=== PATIENT | female | born 1995 ===

== ENCOUNTER 2020-12-29 11:57 | Emergency (ER) | payer BC ==
[2020-12-29 12:03] VITALS: BP 117/57
[2020-12-29] MEDS ORDERED: VERAPAMIL 5 MG/2 ML INJ ONE (12:05)
--- NOTE | 2020-12-29 12:48 | Emergency Department Report ---
ED ENT HPI - General Chief complaint: Earache Stated complaint: BUG IN RGHT EAR Time Seen by Provider: 12/29/20 12:07 Source: patient Mode of arrival: Ambulatory Limitations: No Limitations - History of Present Illness Initial comments: This is a 25-year-old female brought by mother nontoxic, well nourished in appearance, no acute signs of distress presents to the ED with c/o of right ear foreign body that occurred this morning. Patient stated that she believes a bug is in her ear. Patient denies any ear drainage. Patient denies any trauma to the area. Patient denies any mastoid tenderness or tragus tenderness. Patient denies hearing decrease or hearing changes. Patient denies any fever, chills, nausea, vomiting, chest pain, short of breath, headache or stiff neck. Patient denies any drug allergies or significant past medical history. MD complaint: foreign body -: This morning Location: R ear Severity: mild Severity scale (0 -10): 3 Quality: aching Consistency: constant Improves with: none Worsens with: none Associated Symptoms: denies: fever, cough, gum swelling, toothache, pain with swallowing, sore throat, tinnitus, hearing loss, discharge from ear, rhinorrhea - Related Data Previous Rx's Medication Instructions Recorded Last Taken Type Polymyxin B Sulf/Trimethoprim 2 drops TID 7 Days #1 bottle 12/29/20 Unknown Rx [Polytrim Eye Drops] Allergies Allergy/AdvReac Type Severity Reaction Status Date / Time No Known Allergies Allergy Unverified 12/29/20 12:06 ED Dental HPI - General Chief complaint: Earache Stated complaint: BUG IN RGHT EAR Time Seen by Provider: 12/29/20 12:07 Source: patient Mode of arrival: Ambulatory Limitations: No Limitations - Related Data Previous Rx's Medication Instructions Recorded Last Taken Type Polymyxin B Sulf/Trimethoprim 2 drops TID 7 Days #1 bottle 12/29/20 Unknown Rx [Polytrim Eye Drops] Allergies Allergy/AdvReac Type Severity Reaction Status Date / Time No Known Allergies Allergy Unverified 12/29/20 12:06 ED Review of Systems ROS: Stated complaint: BUG IN RGHT EAR Other details as noted in HPI Comment: All other systems reviewed and negative Constitutional: denies: chills, fever Eyes: denies: eye pain, eye discharge, vision change ENT: ear pain. denies: throat pain Respiratory: denies: cough, shortness of breath, wheezing Cardiovascular: denies: chest pain, palpitations Endocrine: no symptoms reported Gastrointestinal: denies: abdominal pain, nausea, diarrhea Genitourinary: denies: urgency, dysuria, discharge Musculoskeletal: denies: back pain, joint swelling, arthralgia Skin: denies: rash, lesions Neurological: denies: headache, weakness, paresthesias Psychiatric: denies: anxiety, depression Hematological/Lymphatic: denies: easy bleeding, easy bruising ED Past Medical Hx - Past Medical History Previous Medical History?: No - Surgical History Past Surgical History?: No - Medications Home Medications: Home Medications Medication Instructions Recorded Confirmed Last Taken Type Polymyxin B Sulf/Trimethoprim 2 drops TID 7 Days #1 bottle 12/29/20 Unknown Rx [Polytrim Eye Drops] ED Physical Exam - General Limitations: No Limitations General appearance: alert, in no apparent distress - Head Head exam: Present: atraumatic, normocephalic - Eye Eye exam: Present: normal appearance - Expanded ENT Exam Expanded Ear exam: Present: normal external inspection TM/Canal exam: Foreign Body: Right TM - Neck Neck exam: Present: full ROM. Absent: lymphadenopathy - Respiratory Respiratory exam: Absent: respiratory distress - Cardiovascular Cardiovascular Exam: Present: regular rate - Extremities Exam Extremities exam: Present: full ROM - Back Exam Back exam: Present: full ROM - Neurological Exam Neurological exam: Present: alert, oriented X3, normal gait - Psychiatric Psychiatric exam: Present: normal affect, normal mood - Skin Skin exam: Present: warm, dry, intact, normal color. Absent: rash ED Course Vital Signs 12/29/20 12:01 Temperature 98.5 F Pulse Rate 81 Respiratory 18 Rate Blood Pressure 117/57 O2 Sat by Pulse 98 Oximetry - Reevaluation(s) Reevaluation #1: 12/29/20 12:45 Patient is speaking in full sentences with no signs of distress noted. - Foreign Body Removal Ear Location: ear canal (R) Foreign Body Suspected: insect If Insect Suspected: ear canal inspected-intac Foreign Body Removed: yes Foreign Body Removal Technique: forceps (Alligator) Tympanic Membrane Intact: Yes Patient Tolerated Procedure: well, no complications Complications: none ED Medical Decision Making - Medical Decision Making Foreign body has been removed from right ear. Patient tolerated well. Patient will be discharged with Polytrim. Patient was instructed to follow-up with a primary care doctor in 3-5 days or if symptoms worsen and continue return to emergency room as soon as possible. At time of discharge, the patient does not seem toxic or ill in appearance. No acute signs of distress noted. Patient agrees to discharge treatment plan of care. No further questions noted by the patient. Critical care attestation.: If time is entered above; I have spent that time in minutes in the direct care of this critically ill patient, excluding procedure time. ED Disposition Clinical Impression: Foreign body in right ear Qualifiers: Encounter type: initial encounter Qualified Code(s): T16.1XXA - Foreign body in right ear, initial encounter Disposition: HOME / SELF CARE / HOMELESS Is pt being admited?: No Does the pt Need Aspirin: No Condition: Stable Instructions: Ear Foreign Body Additional Instructions: Follow-up with a primary care doctor in 3-5 days or if symptoms worsen and continue return to emergency room as soon as possible. Prescriptions: Polymyxin B Sulf/Trimethoprim [Polytrim Eye Drops] 2 drops TID 7 Days #1 bottle Referrals: TANIA JENKINS MD [Primary Care Provider] - 3-5 Days DON DIMAS MD [Staff Physician] - 3-5 Days Forms: Work/School Release Form(ED) Time of Disposition: 12:47
== END 2020-12-29 13:14 | disposition home or self-care (01) ==
LOC: ED 11:57
DX: T16.1XXA Foreign body in right ear, initial encounter (principal); X58.XXXA Exposure to other specified factors, initial encounter; Y93.89 Activity, other specified; Y92.89 Other specified places as the place of occurrence of the external cause; Y99.8 Other external cause status
CPT/HCPCS: 99281